=== PATIENT | male | born 1970 | race Caucasian/White ===

== ENCOUNTER 2019-04-10 21:18 | Inpatient (IN) | payer MEDICAID ==
[~2019-04-10] VITALS: Ht 188 cm; Wt 89.4 kg
[~2019-04-10 21:18] MED LIST: CLON.5 PO; LEVE250T55 PO; LURA40 PO; OXCA300T29 PO
[2019-04-10] MEDS ORDERED: LORazepam 2 MG TABLET PO PRN (22:00)
[2019-04-10] MEDS ORDERED: HALOPERIDOL 5 MG TABLET PO PRN (22:00)
[2019-04-11 00:01] VITALS: BP 120/67
[2019-04-11 08:49] LABS: BASOPHILS % (AUTO) 0.6 % (0.0-2.0); EOSINOPHILS % (AUTO) 1.1 % (1.0-6.0); HEMATOCRIT 42.9 % (41-53); HEMOGLOBIN 14.6 g/dL (13.5-17.5); LYMPHOCYTES # (AUTO) 2.5 K/uL (1.0-4.8); LYMPHOCYTES % (AUTO) 40.8 % (22.0-44.0); MEAN CORPUSCULAR HEMOGLOBIN 29.3 pg (26.0-34.0); MEAN CORPUSCULAR VOLUME 86 fL (80-100); MONOCYTES # (AUTO) 0.5 K/uL (0.1-1.0); MONOCYTES % (AUTO) 7.9 % (2.0-9.0); NEUTROPHILS # (AUTO) 3.1 K/uL (1.8-7.7); NEUTROPHILS % (AUTO) 49.6 % (40.0-70.0); PLATELET COUNT (AUTO) 293 K/uL (150-450); RED BLOOD CELL COUNT(AUTO) 4.97 MIL/uL (4.50-5.90); RED CELL DISTRIBUTION WIDTH 13.2 % (11.5-14.5)
[2019-04-11 08:53] VITALS: BP 122/74
[2019-04-11] MEDS ORDERED: OXcarbazepine 300 MG TABLET PO SCH ×2 (09:00→17:00)
[2019-04-11] MEDS ORDERED: LevETIRAcetam 500 MG TABLET PO SCH (09:00)
[2019-04-11 09:14] LABS: ALANINE AMINOTRANSFERASE 40 U/L (12-78); ALBUMIN 4.1 g/dL (3.4-5.0); ALKALINE PHOSPHATASE 85 U/L (46-116); ANION GAP 6 mmol/L (8-16); ASPARTATE AMINOTRANSFERASE 19 U/L (15-37); BILIRUBIN,TOTAL 0.8 mg/dL (0.1-1.0); CARBON DIOXIDE 31 mmol/L (22-29); CHLORIDE 98 mmol/L (98-107); CREATININE 0.56 mg/dL (0.60-1.30); GLOMERULAR FILTR. RATE CALC > 60 mL/min (>60); GLUCOSE,RANDOM 96 mg/dL (70-110); POTASSIUM 4.1 mmol/L (3.5-5.1); SODIUM SERUM 135 mmol/L (136-145); TOTAL PROTEIN, SERUM 7.5 g/dL (6.4-8.2); UREA NITROGEN, BLOOD 5 mg/dL (7-18)
[2019-04-11] MEDS: PARoxetine HCL 20 MG TABLET PO SCH (10:38)
[2019-04-11] MEDS ORDERED: MAG HYDROX/AL HYDROX/SIMETH ES 30 ML SUSPENSION UDCUP PO PRN (11:45)
[2019-04-11] MEDS ORDERED: MAGNESIUM HYDROXIDE SUSPENSION 30 ML UDCUP PO PRN (11:45)
[2019-04-11] MEDS ORDERED: GuaiFENesin/D-METHORPHAN [SUGAR-FREE] 200-20MG/10 ML SYRUP UDCUP PO PRN (11:45)
[2019-04-11] MEDS ORDERED: LOPERAMIDE HCL 2 MG CAPSULE PO PRN (11:45)
[2019-04-11] MEDS ORDERED: ACETAMINOPHEN 325 MG TABLET PO PRN (11:45)
[2019-04-11] MEDS ORDERED: ONDANSETRON HCL 4 MG TABLET PO PRN (11:45)
[2019-04-11] MEDS ORDERED: CloNIDine HCL 0.1 MG TABLET PO PRN (11:45)
[2019-04-11] MEDS ORDERED: ALBUTEROL SULFATE HFA 90 MCG/PUFF 8 GM INHALER IH PRN (11:45)
[2019-04-11] MEDS ORDERED: PETROLATUM,WHITE 28 GM JELLY TP PRN (11:45)
[2019-04-11] MEDS ORDERED: NICOTINE 14 MG/24 HOUR PATCH TD PRN (11:45)
[2019-04-11] MEDS ORDERED: DOCUSATE SODIUM 100 MG CAPSULE PO PRN (11:45)
[2019-04-11] MEDS ORDERED: LevETIRAcetam 250 MG TABLET PO SCH (13:00)
[2019-04-11 16:12] VITALS: BP 128/80
[2019-04-11] MEDS: IBUPROFEN 400 MG TABLET PO PRN (16:12)
[2019-04-11] MEDS: LORazepam 1 MG TABLET PO SCH (16:40)
[2019-04-11] MEDS: LURASIDONE HCL 40 MG TABLET PO SCH (20:06)
[2019-04-11] MEDS: OXcarbazepine 300 MG TABLET PO SCH (20:06)
[2019-04-12 06:32] VITALS: BP 140/81
[2019-04-12 08:04] VITALS: BP 123/74
[2019-04-12] MEDS: LORazepam 1 MG TABLET PO SCH ×3 (08:26→16:48)
[2019-04-12] MEDS: PARoxetine HCL 20 MG TABLET PO SCH (08:26)
[2019-04-12] MEDS: OXcarbazepine 300 MG TABLET PO SCH ×2 (08:26→20:12)
[2019-04-12 16:40] VITALS: BP 138/87
[2019-04-12] MEDS: LURASIDONE HCL 40 MG TABLET PO SCH (20:12)
[2019-04-12] MEDS: ZOLPIDEM TARTRATE 10 MG TABLET PO PRN (21:07)
[2019-04-13 00:02] VITALS: BP 122/69
[2019-04-13] MEDS: IBUPROFEN 400 MG TABLET PO PRN (00:06)
[2019-04-13 08:01] VITALS: BP 136/84
[2019-04-13] MEDS: LORazepam 1 MG TABLET PO SCH ×3 (08:10→17:13)
[2019-04-13] MEDS: PARoxetine HCL 20 MG TABLET PO SCH (08:10)
[2019-04-13] MEDS: OXcarbazepine 300 MG TABLET PO SCH ×2 (08:10→20:02)
[2019-04-13 16:02] VITALS: BP 120/73
[2019-04-13] MEDS: LURASIDONE HCL 40 MG TABLET PO SCH (20:02)
[2019-04-14 00:02] VITALS: BP 121/80
[2019-04-14] MEDS: ZOLPIDEM TARTRATE 10 MG TABLET PO PRN (01:43)
[2019-04-14] MEDS: LORazepam 1 MG TABLET PO SCH ×2 (08:14→13:20)
[2019-04-14] MEDS: OXcarbazepine 300 MG TABLET PO SCH (08:15)
[2019-04-14] MEDS: PARoxetine HCL 20 MG TABLET PO SCH (08:15)
[2019-04-14 08:20] VITALS: BP 137/77
[2019-04-14] MEDS ORDERED: OXCA300T29 PO ×2 (11:49)
[2019-04-14] MEDS ORDERED: PARO20TA24 PO (11:49)
[2019-04-14] MEDS ORDERED: LORA-1000 PO (11:49)
[2019-04-14] MEDS ORDERED: LURA40 PO (11:49)
== END 2019-04-14 14:27 | disposition home or self-care (01) | DRG 750 ==
LOC: B2S 22:27
PROVIDERS: ADMIT Psychiatry & Neurology Psychiatry; ATTEND Psychiatry & Neurology Psychiatry
DX: F25.0 Schizoaffective disorder, bipolar type (principal); E87.1 Hypo-osmolality and hyponatremia; G40.909 Epilepsy, unspecified, not intractable, without status epilepticus; F07.81 Postconcussional syndrome; R45.87 Impulsiveness; F41.9 Anxiety disorder, unspecified; Z79.899 Other long term (current) drug therapy